=== PATIENT | male | born 1980 | race Caucasian/White ===

== ENCOUNTER 2020-06-01 08:44 | Emergency (ER) | payer OTHER ==
[~2020-06-01] VITALS: Ht 177.8 cm; Wt 117.9 kg
[2020-06-01 08:51] VITALS: BP 109/80
[2020-06-01] MEDS ORDERED: BACITRACIN OINT 500 UNITS/GM PKT TP ONE (08:55)
[2020-06-01] MEDS ORDERED: ACETAMINOPHEN EXTRA STRENGTH 500 MG TAB PO ONE (08:55)
[2020-06-01] MEDS ORDERED: AMOX-1000 PO (08:59)
[2020-06-01 09:30] VITALS: BP 109/80
== END 2020-06-01 09:30 ==
LOC: MED 08:44
DX: S50.12XA Contusion of left forearm, initial encounter (principal); S50.11XA Contusion of right forearm, initial encounter; S70.12XA Contusion of left thigh, initial encounter; S70.11XA Contusion of right thigh, initial encounter; S30.1XXA Contusion of abdominal wall, initial encounter; W54.0XXA Bitten by dog, initial encounter; Y93.89 Activity, other specified; Y92.89 Other specified places as the place of occurrence of the external cause; Y99.8 Other external cause status
CPT/HCPCS: 73090; 90471; 90715; 96374; 99283; 99284